=== PATIENT | female | born 2000 | race Caucasian/White ===

== ENCOUNTER 2023-09-08 18:06 | Emergency (ER) | payer OTHER ==
[~2023-09-08] VITALS: Ht 152.4 cm; Wt 73.9 kg
[~2023-09-08 18:06] MED LIST: PREDNISONE20 MG PO; PROVENTIL HFA6.7 GM INH
[2023-09-08 18:58] LABS: INFLUENZA B NAA NEGATIVE (NEGATIVE); RESPIRATORY SYNCYTIAL VIR NAA NEGATIVE (NEGATIVE)
[2023-09-08 19:14] LABS: BASOPHILS 0.3 % (0-2); EOSINOPHILS 0.8 % (0-6); HEMATOCRIT 38.1 % (35.0-50.0); HEMOGLOBIN 12.8 g/dL (12.0-18.0); LYMPHOCYTES 13.9 % (24-44); MCH 30.2 (27-36); MCHC 33.7 g/dl (30-36); MCV 89.7 fl (81-99); MONOCYTES 5.9 % (0-12); NEUTROPHILS 79.1 % (39-80); PLATELET COUNT 155 K/uL (140-440); RBC 4.24 M/ul (4.3-5.7); RDW 12.9 (10.5-15.0)
[2023-09-08 19:30] LABS: BILIRUBIN, URINE NEGATIVE (negative); BLOOD/HGB, URINE NEGATIVE (Negative); KETONE, URINE NEGATIVE (Negative); LEUK ESTERASE, URINE NEGATIVE (negative); NITRITE, URINE NEGATIVE (negative); PH, URINE 6.5 (5-7)
[2023-09-08 19:39] LABS: ALBUMIN 2.5 g/dL (3.4-5.0); ALBUMIN/GLOBULIN RATIO 0.66 (1.1-2.4); ANION GAP 11.7 (7-21); BILIRUBIN, TOTAL 0.3 ng/dL (0.2-1.0); BUN/CREATININE RATIO 9.8 (6.0-28.6); CREATININE, SERUM 0.51 mg/dL (0.55-1.02); POTASSIUM 3.7 mmol/L (3.5-5.1); PROTEIN, TOTAL 6.3 g/dL (6.4-8.2); TSH, 3RD GENERATION 1.896 uIU/mL (0.358-3.740)
[2023-09-08 19:39] LABS: EPITHELIAL CELLS, URINE SQUAMOUS 2+ /lpf (0-1+); RED BLOOD CELLS, URINE 0-1 /hpf (0-5); REFLEX CULTURE, URINE No (No); WHITE BLOOD CELLS, URINE 0-1 /HPF (0-5)
[2023-09-08 19:40] LABS: BACTERIA, URINE 1+ /hpf (negative)
[2023-09-08 19:47] LABS: PROTEIN, RANDOM URINE <6 mg/dL (NOT ESTABLISHED)
[2023-09-08 19:49] LABS: CREATININE, RANDOM URINE 14.71 mg/dL (NOT ESTABLISHED)
[2023-09-08 20:05] VITALS: BP 156/109
== END 2023-09-08 20:16 | disposition home or self-care (01) ==
LOC: ED 18:06
PROVIDERS: Internal Medicine
DX: O99.513 Diseases of the respiratory system complicating pregnancy, third trimester (principal); J06.9 Acute upper respiratory infection, unspecified; O99.413 Diseases of the circulatory system complicating pregnancy, third trimester; Z3A.37 37 weeks gestation of pregnancy; F17.200 Nicotine dependence, unspecified, uncomplicated; Z20.822 Contact with and (suspected) exposure to COVID-19
CPT/HCPCS: 36415; 80053; 81001; 82570; 84156; 84443; 85025; 87502; C9803; U0002

== ENCOUNTER 2023-09-10 11:28 | Emergency (ER) | payer OTHER ==
[~2023-09-10] VITALS: Ht 152.4 cm; Wt 92.7 kg
--- OUTSIDE RECORDS SUMMARY | 2023-09-10 11:36 | XMS ---
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 PHONE: [phone] Natasha has no Care Guidelines for this patient. [place] VISIT COUNT (12 MO.) 3 [facility] TOTAL 3 NOTE: Visits indicate total known visits. ED/UCC VISIT TRACKING (12 MO.) 09/10/2023 11:29 [facility] TYPE: Emergency COMPLAINT: - R EAR PLUGGED, THROBING PAIN 09/08/2023 18:07 [facility] TYPE: Emergency COMPLAINT: - COLD SYMPTOMS DIAGNOSES: - 37 weeks gestation of - Acute upper respiratory infection, unspecified - Contact with and (suspected) exposure to COVID-19 - Diseases of the circulatory system complicating , third trimester - Diseases of the respiratory system complicating , third trimester - Headache, unspecified - Nicotine dependence, unspecified, uncomplicated 03/30/2023 00:28 [facility] TYPE: Emergency COMPLAINT: - FAINTED 3MO PREG DIAGNOSES: - 10 weeks gestation of - 13 weeks gestation of - Other specified diseases and conditions complicating - Smoking (tobacco) complicating , first trimester - Syncope and collapse INPATIENT VISIT TRACKING (12 MO.) No inpatient visits to display in this time frame [email or web address]
[2023-09-10 12:23] VITALS: BP 161/114
[2023-09-10 12:44] LABS: HEMATOCRIT 39.3 % (35.0-50.0); HEMOGLOBIN 13.6 g/dL (12.0-18.0); MCH 30.6 (27-36); MCHC 34.6 g/dl (30-36); MCV 88.5 fl (81-99); RBC 4.44 M/ul (4.3-5.7); RDW 13.1 (10.5-15.0)
[2023-09-10 12:54] LABS: ALBUMIN 2.6 g/dL (3.4-5.0); ALBUMIN/GLOBULIN RATIO 0.63 (1.1-2.4); BILIRUBIN, TOTAL 0.6 ng/dL (0.2-1.0); BUN/CREATININE RATIO 8.92 (6.0-28.6); CREATININE, SERUM 0.56 mg/dL (0.55-1.02); PROTEIN, TOTAL 6.7 g/dL (6.4-8.2)
[2023-09-10 13:20] LABS: CREATININE, RANDOM URINE 37.56 mg/dL (NOT ESTABLISHED); PROTEIN/CREATININE RATIO 0.61 mg/mg (0.010-0.107)
== END 2023-09-10 12:23 | disposition home or self-care (01) ==
LOC: ED 11:28
PROVIDERS: Obstetrics & Gynecology
DX: O16.3 Unspecified maternal hypertension, third trimester (principal); O99.891 Other specified diseases and conditions complicating pregnancy; O99.333 Smoking (tobacco) complicating pregnancy, third trimester; H73.011 Bullous myringitis, right ear; F17.200 Nicotine dependence, unspecified, uncomplicated; Z3A.37 37 weeks gestation of pregnancy
CPT/HCPCS: 36415; 80053; 82565; 82570; 83615; 84156; 84550; 85027; 85060; 99283

== ENCOUNTER 2023-09-10 12:50 | Inpatient (IN) | payer OTHER ==
[~2023-09-10] VITALS: Ht 152.4 cm; Wt 94.3 kg
[2023-09-10 13:05] VITALS: BP 145/102
[2023-09-10 14:08] LABS: AMPHETAMINES, URINE NEGATIVE (NEGATIVE); BARBITURATES, URINE NEGATIVE (NEGATIVE); BENZODIAZEPINE, URINE NEGATIVE (NEGATIVE); BUPRENORPHINE, URINE NEGATIVE (NEGATIVE); CANNABINOID, URINE NEGATIVE (NEGATIVE); COCAINE, URINE NEGATIVE (NEGATIVE); ECSTASY, URINE NEGATIVE (NEGATIVE); FENTANYL, URINE NEGATIVE (NEGATIVE); METHADONE, URINE NEGATIVE (NEGATIVE); OPIATES, URINE NEGATIVE (NEGATIVE); OXYCODONE, URINE NEGATIVE (NEGATIVE); PHENCYCLIDINE, URINE NEGATIVE (NEGATIVE)
[2023-09-10 18:02] LABS: ABO A; ANTIBODY SCREEN NEGATIVE; RH POSITIVE
--- NOTE | 2023-09-10 20:32 | PR ---
[facility] [address] [facility] [place], [place] [address] Signed Progress Notes IP Datetime Report Generated by CPN: 09/10/2023 20:32 PROGRESS NOTES: [id number] Impression: Reassuring Heart Rate Plan: Continue Present Management Other Informed Consents: Reviewed Mag / HTN management if indicated VITAL SIGNS: [id number] Vital Signs: Reviewed VS Notable Details: No severe range EXAM: [id number] Effacement: 50 Station: -3 MEMBRANES: [id number] Comments: Pt seen and evaluated. One severe elevated BP, not sustained. No UP, RUQ pain, or visual changes. Reviewed FHT, BPs, and indications for Mag / HTN intervention as needed. All questions answered. Will continue to monitor. FETUS A: [id number] FHR Baseline: 140 Variability: Minimal - >Undetectable to <=5bpm Decelerations: None FHR Category: Category II Presentation: Vertex Comments on Fetus A: Reassuring FHT FETUS B: [id number] Signing Physician: Mehreen Anand DO Copies: ~ *Electronically Signed* 09/10/232031 MEHREEN ANAND (ZAIRE) DO PATIENT NAME: MARI HOLLOWAY PROGRESS NOTE DATE OF : 01 PHYSICIAN: MEHREEN ANAND (ZAIRE) DO RPT #: [id number] REPORT IS CONFIDENTIAL AND NOT TO BE RELEASED WITHOUT AUTHORIZATION
[2023-09-11 09:03] LABS: HEMATOCRIT 38.8 % (35.0-50.0); HEMOGLOBIN 12.9 g/dL (12.0-18.0); MCH 29.7 (27-36); MCHC 33.3 g/dl (30-36); MCV 89.1 fl (81-99); RBC 4.35 M/ul (4.3-5.7); RDW 12.8 (10.5-15.0)
--- NOTE | 2023-09-11 09:10 | PR ---
[facility] [address] [facility] [place], [place] [address] Signed Progress Notes IP Datetime Report Generated by CPN: 09/11/2023 09:10 PROGRESS NOTES: [id number] Impression: Reassuring Heart Rate Other Procedures: Mag Sulfate / Labetalol Plan: Continue Present Management Other Informed Consents: Reviewed Mag / HTN management if indicated VITAL SIGNS: [id number] Vital Signs: Reviewed VS Notable Details: No severe range EXAM: [id number] Effacement: 40 Station: -1 MEMBRANES: [id number] Comments: Pt seen and examined. Pt w/ sustained elevated BPs. No UP, RUQ pain, or visual changes. Start Mag 6g bolus 2g/hr maint. Labetalol protocol initiated and pt received one dose of labetalol 20mg IV and BPs normal. Will monitor per protocol. Reviewed anticipated course of labor and close monitoring of FHT. Discussed indication for C/S if needed. Pt understands and agrees with plan of care. FETUS A: [id number] FHR Baseline: 140 Variability: Minimal - >Undetectable to <=5bpm Decelerations: Late FHR Category: Category II Presentation: Vertex Comments on Fetus A: Reassuring FHT FETUS B: [id number] Signing Physician: Mehreen Anand DO Copies: ~ *Electronically Signed* 09/11/23 0910 MEHREEN ANAND (ZAIRE) DO PATIENT NAME: MARI HOLLOWAY PROGRESS NOTE DATE OF : 01 PHYSICIAN: MEHREEN ANAND (JD) DO RPT #: [id number] REPORT IS CONFIDENTIAL AND NOT TO BE RELEASED WITHOUT AUTHORIZATION
[2023-09-11 09:20] LABS: ALBUMIN 2.3 g/dL (3.4-5.0); ALBUMIN/GLOBULIN RATIO 0.56 (1.1-2.4); ANION GAP 15.9 (7-21); BILIRUBIN, TOTAL 0.6 ng/dL (0.2-1.0); BUN/CREATININE RATIO 11.32 (6.0-28.6); CALCIUM 8.8 mg/dL (8.5-10.1); CREATININE, SERUM 0.53 mg/dL (0.55-1.02); POTASSIUM 3.9 mmol/L (3.5-5.1); PROTEIN, TOTAL 6.4 g/dL (6.4-8.2)
--- NOTE | 2023-09-11 12:36 | PR ---
[facility] [address] [place], [place] [address] Signed Progress Notes IP Datetime Report Generated by CPN: 09/11/2023 12:36 PROGRESS NOTES: [id number] Impression: Reassuring Heart Rate; Gest. HTN/PreEclampsia/Eclampsia Procedures: Sterile Vag Exam Other Procedures: Mag Sulfate / Labetalol Plan: Cervical Ripening Other Informed Consents: Reviewed Mag / HTN management if indicated VITAL SIGNS: [id number] Vital Signs: Reviewed VS Notable Details: No severe range EXAM: [id number] Dilatation: 0.0 Effacement: 40 Station: -1 Contractions: Rare MEMBRANES: [id number] Comments: Pt seen and examined. Doing well. Frustrated w/ lack of progress. Declines nicotine patch. Tolerating magsulfate well. No severe range BPs. No concerns. Discussed cx exam and recommended cytotec which was placed w/out difficulty. Continue induction of labor. FETUS A: [id number] FHR Baseline: 140 Variability: Minimal - >Undetectable to <=5bpm Decelerations: None FHR Category: Category II Presentation: Vertex Comments on Fetus A: Reassuring FHT FETUS B: [id number] Signing Physician: Mehreen Anand DO Copies: ~ *Electronically Signed* 09/11/23 1236 MEHREEN ANAND (ZAIRE) DO PATIENT NAME: MARI HOLLOWAY PROGRESS NOTE DATE OF : 01 PHYSICIAN: MEHREEN ANAND (JD) DO RPT #: [id number] REPORT IS CONFIDENTIAL AND NOT TO BE RELEASED WITHOUT AUTHORIZATION
[2023-09-11 15:02] LABS: HEMATOCRIT 39.9 % (35.0-50.0); HEMOGLOBIN 13.6 g/dL (12.0-18.0); MCH 30.2 (27-36); MCHC 34.1 g/dl (30-36); MCV 88.7 fl (81-99); RBC 4.5 M/ul (4.3-5.7); RDW 12.9 (10.5-15.0)
[2023-09-11 15:17] LABS: ALBUMIN 2.6 g/dL (3.4-5.0); ALBUMIN/GLOBULIN RATIO 0.62 (1.1-2.4); BILIRUBIN, TOTAL 0.5 ng/dL (0.2-1.0); BUN/CREATININE RATIO 8.06 (6.0-28.6); CREATININE, SERUM 0.62 mg/dL (0.55-1.02); PROTEIN, TOTAL 6.8 g/dL (6.4-8.2)
[2023-09-11 21:21] LABS: HEMATOCRIT 39.7 % (35.0-50.0); HEMOGLOBIN 13.5 g/dL (12.0-18.0); MCH 30.3 (27-36); MCHC 34.1 g/dl (30-36); MCV 88.8 fl (81-99); RBC 4.47 M/ul (4.3-5.7); RDW 12.8 (10.5-15.0)
[2023-09-11 21:27] LABS: ALBUMIN 2.2 g/dL (3.4-5.0); ALBUMIN/GLOBULIN RATIO 0.52 (1.1-2.4); ANION GAP 11.1 (7-21); BILIRUBIN, TOTAL 0.5 ng/dL (0.2-1.0); BUN/CREATININE RATIO 7.4 (6.0-28.6); CALCIUM 7.4 mg/dL (8.5-10.1); CREATININE, SERUM 0.54 mg/dL (0.55-1.02); POTASSIUM 4.1 mmol/L (3.5-5.1); PROTEIN, TOTAL 6.4 g/dL (6.4-8.2)
--- NOTE | 2023-09-11 23:25 | PR ---
[facility] [address] [place], [place] [address] Signed Progress Notes IP Datetime Report Generated by CPN: 09/11/2023 23:25 PROGRESS NOTES: [id number] Impression: Reassuring Heart Rate Procedures: Sterile Vag Exam Other Procedures: Mag Sulfate / Labetalol Plan: Cervical Ripening Other Plans: Pt asking about primary C/S Informed Consent Obtain: Vaginal Delivery; Section Delivery; Induction of Labor Other Informed Consents: Reviewed Mag / HTN management if indicated VITAL SIGNS: [id number] Vital Signs: Reviewed VS Notable Details: No severe range EXAM: [id number] Dilatation: 0.0 Effacement: 0 Station: -3 Contractions: Rare MEMBRANES: [id number] Comments: Pt seen and evaluated. Feeling frustrated w/ lack of progress but otherwise doing well and in good spirits. No UP, RUQ pain or visual changes. Reviewed PreE labs at 21:00 normal. Reviewed slow progress of induction and pt inquiring about primary C/S. After discussion of risks/benefits, pt would like to continue attempting induction of labor but is strongly considering C/S. All questions answered. FETUS A: [id number] FHR Baseline: 140 Variability: Moderate 6-25bpm Decelerations: None FHR Category: Category I Presentation: Vertex Comments on Fetus A: Reassuring FHT FETUS B: [id number] Signing Physician: Mehreen Anand DO Copies: ~ *Electronically Signed* 09/11/23 5041 MEHREEN ANAND (ZAIRE) DO PATIENT NAME: MARI HOLLOWAY PROGRESS NOTE DATE OF : 01 PHYSICIAN: MEHREEN ANAND (JD) DO RPT #: [id number] REPORT IS CONFIDENTIAL AND NOT TO BE RELEASED WITHOUT AUTHORIZATION
[2023-09-12 03:11] LABS: HEMOGLOBIN 13.2 g/dL (12.0-18.0); MCH 30.1 (27-36); MCHC 33.7 g/dl (30-36); MCV 89.3 fl (81-99); RBC 4.37 M/ul (4.3-5.7); RDW 12.6 (10.5-15.0)
[2023-09-12 03:24] LABS: ALBUMIN 2.2 g/dL (3.4-5.0); ALBUMIN/GLOBULIN RATIO 0.56 (1.1-2.4); ANION GAP 12.9 (7-21); BILIRUBIN, TOTAL 0.5 ng/dL (0.2-1.0); BUN/CREATININE RATIO 7.84 (6.0-28.6); CALCIUM 7.3 mg/dL (8.5-10.1); CREATININE, SERUM 0.51 mg/dL (0.55-1.02); POTASSIUM 3.9 mmol/L (3.5-5.1); PROTEIN, TOTAL 6.1 g/dL (6.4-8.2)
--- NOTE | 2023-09-12 04:40 | PR ---
[facility] [address] [place], [place] [address] Signed Progress Notes IP Datetime Report Generated by CPN: 09/12/2023 04:40 PROGRESS NOTES: [id number] Impression: Non-reassuring Heart Rate Procedures: Sterile Vag Exam Other Procedures: Mag Sulfate / Labetalol Plan: Deliver- Section Other Plans: Pt asking about primary C/S Informed Consent Obtain: Section Delivery; Risks, Benefits and Alternatives Discussed Other Informed Consents: Reviewed Mag / HTN management if indicated VITAL SIGNS: [id number] Vital Signs: Reviewed VS Notable Details: No severe range EXAM: [id number] Dilatation: 0.0 Effacement: 50 Station: -3 Contractions: Irregular MEMBRANES: [id number] Comments: Called by RN for recurrent late decelertions. Presented to pt's bedside and reviewed strip. Minimal variability with recurrent late decelerations. Remote from delivery. Recommended primary LTCS as previously discussed. Risks, benefits, and alternatives discussed. Pt understands agrees. Consents signed and OR crew called. Will continue intrauterine rescussitation. RT and Peds en route. FETUS A: [id number] FHR Baseline: 140 Variability: Minimal - >Undetectable to <=5bpm Decelerations: Late FHR Category: Category II Presentation: Vertex Comments on Fetus A: Reassuring FHT FETUS B: [id number] Signing Physician: Mehreen Anand DO *Electronically Signed* 09/12/23 9100 MEHREEN ANAND (ZAIRE) DO PATIENT NAME: MARI HOLLOWAY PROGRESS NOTE DATE OF : 01 PHYSICIAN: MEHREEN ANAND (JD) DO RPT #: [id number] REPORT IS CONFIDENTIAL AND NOT TO BE RELEASED WITHOUT AUTHORIZATION
[2023-09-12 06:53] VITALS: BP 132/97
--- NOTE | 2023-09-12 07:22 | NUR ---
09/12/23 0722 Cornish[place]uz 0611- PT TO ROOM 106 IN [facility], AWAKE BUT DROWSY. DENIES PAIN OR NAUSEA. ALL MONITORS IN PLACE, NSR ON MONITOR. LR WITH 30 UNITS OF PITOCIN AND MAGNESIUM INFUSING TO 18 G LAC IV. PT HAS 20 IV TO RH SALINE LOCKED. FUNDUS FIRM AT UMBILICUS, NO BLEEDING AT THIS TIME. DRESSING IN PLACE, CDI. MARTIN [facility] RN AT BEDSIDE, ASSESSING PT AND FUNDUS. BABY TO BREAST. 06- MARTIN RN CONTINUES TO ASSIST PT WITH BREAST FEEDING. HEAD OF BED ELEVATED, PT TOLERATING WELL. PT REMAINS AWAKE BUT DROWSY. SPINAL LEVEL T-3. LR AND MAG CONTINUE TO INFUSE. REPORT AT BEDSIDE TO MARTIN RN. BED PLUGGED IN. NO SIGNS OF DISTRESS. CARE OF PT TURNED OVER AT THIS TIME.
[2023-09-12 08:20] LABS: HEMATOCRIT 35.5 % (35.0-50.0); HEMOGLOBIN 12.2 g/dL (12.0-18.0); MCH 30.3 (27-36); MCHC 34.4 g/dl (30-36); MCV 88.1 fl (81-99); RBC 4.02 M/ul (4.3-5.7); RDW 12.8 (10.5-15.0)
[2023-09-12 08:34] LABS: ALBUMIN/GLOBULIN RATIO 0.54 (1.1-2.4); ANION GAP 10.3 (7-21); BILIRUBIN, TOTAL 0.5 ng/dL (0.2-1.0); BUN/CREATININE RATIO 9.09 (6.0-28.6); CALCIUM 7.1 mg/dL (8.5-10.1); CREATININE, SERUM 0.55 mg/dL (0.55-1.02); POTASSIUM 4.3 mmol/L (3.5-5.1); PROTEIN, TOTAL 5.7 g/dL (6.4-8.2)
[2023-09-12 14:02] LABS: HEMATOCRIT 37.9 % (35.0-50.0); HEMOGLOBIN 12.7 g/dL (12.0-18.0); MCHC 33.4 g/dl (30-36); MCV 89.8 fl (81-99); RBC 4.22 M/ul (4.3-5.7); RDW 12.9 (10.5-15.0)
[2023-09-12 14:22] LABS: ALBUMIN 2.2 g/dL (3.4-5.0); ALBUMIN/GLOBULIN RATIO 0.54 (1.1-2.4); ANION GAP 14.1 (7-21); BILIRUBIN, TOTAL 0.4 ng/dL (0.2-1.0); BUN/CREATININE RATIO 9.09 (6.0-28.6); CALCIUM 7.5 mg/dL (8.5-10.1); CREATININE, SERUM 0.77 mg/dL (0.55-1.02); POTASSIUM 5.1 mmol/L (3.5-5.1); PROTEIN, TOTAL 6.3 g/dL (6.4-8.2)
[2023-09-12 20:19] LABS: HEMATOCRIT 35.2 % (35.0-50.0); HEMOGLOBIN 11.7 g/dL (12.0-18.0); MCH 29.8 (27-36); MCHC 33.3 g/dl (30-36); MCV 89.4 fl (81-99); RBC 3.93 M/ul (4.3-5.7); RDW 12.9 (10.5-15.0)
[2023-09-12 21:19] LABS: ALBUMIN 2.1 g/dL (3.4-5.0); ALBUMIN/GLOBULIN RATIO 0.55 (1.1-2.4); ANION GAP 12.8 (7-21); BILIRUBIN, TOTAL 0.3 ng/dL (0.2-1.0); BUN/CREATININE RATIO 11.94 (6.0-28.6); CALCIUM 7.2 mg/dL (8.5-10.1); CREATININE, SERUM 0.67 mg/dL (0.55-1.02); POTASSIUM 4.8 mmol/L (3.5-5.1); PROTEIN, TOTAL 5.9 g/dL (6.4-8.2)
--- NOTE | 2023-09-13 09:48 | PR ---
[facility] [address] [place], [place] [address] Signed PP Progress Notes Datetime Report Generated by CPN: 09/13/2023 09:48 SUBJECTIVE: [id number] Pain: Within Normal Limits Nausea/Vomiting: Denies Flatus: Yes Bowel Movement: No Vital Signs: [id number] Vital Signs: Reviewed; Within Normal Limits Cardiovascular: Not Done Respiratory: Not Done Abdomen/Uterus: Normal Lochia: Normal Vulva/Perineum: Not Done Breasts: Not Done CVA Tenderness: Not Done Extremities: Normal Incision: Normal Progress: Normal IMPRESSION/PLAN/PROCEDURES: [id number] Impression: Normal Progression; Induced Hypertension Plan: Continue Present Management Procedures: None Progress Notes: S: 23 yo s/p primary section. Very emotional this morning following delivery events, being confined to bed, very little sleep. Denies UP, CP, SOB, F/C, N/V, RUQ pain, changes in vision, vaginal discharge. Tolerating regular diet, ambulating, voiding on own, pain controlled. O: AFVSS Abd: Soft. Appropriately tender to palpation, fundus firm and below umbilicus. Incision C/D/I. No erythema or drainage. Signing Physician: Nani Eric MD Copies: ~ *Electronically Signed* 09/13/23 0948 NANI ERIC MD PATIENT NAME: MARI HOLLOWAY PROGRESS NOTE DATE OF : 01 PHYSICIAN: NANI ERIC MD RPT #: [id number] REPORT IS CONFIDENTIAL AND NOT TO BE RELEASED WITHOUT AUTHORIZATION
--- NOTE | 2023-09-13 10:45 | NUR ---
MOTHER SLEEPING. ASKED NOT TO BE DISTURBED. DID NOT ENTER ROOM. PRAYED SILENTLY FOR GOOD BEGINNINGS AND ONGOING BLESSING.
[2023-09-14 05:37] LABS: HEMATOCRIT 31.7 % (35.0-50.0); HEMOGLOBIN 10.7 g/dL (12.0-18.0); MCH 30.4 (27-36); MCHC 33.6 g/dl (30-36); MCV 90.4 fl (81-99); RBC 3.51 M/ul (4.3-5.7); RDW 13.2 (10.5-15.0)
[2023-09-14 05:56] LABS: ALBUMIN 2.2 g/dL (3.4-5.0); ALBUMIN/GLOBULIN RATIO 0.65 (1.1-2.4); ANION GAP 11.2 (7-21); BILIRUBIN, TOTAL 0.2 ng/dL (0.2-1.0); BUN/CREATININE RATIO 13.43 (6.0-28.6); CALCIUM 8.4 mg/dL (8.5-10.1); CREATININE, SERUM 0.67 mg/dL (0.55-1.02); POTASSIUM 4.2 mmol/L (3.5-5.1); PROTEIN, TOTAL 5.6 g/dL (6.4-8.2)
--- NOTE | 2023-09-14 09:10 | PR ---
[facility] [address] [facility] [place], [place] [address] Signed PP Progress Notes Datetime Report Generated by CPN: 09/14/2023 09:10 SUBJECTIVE: [id number] Pain: Within Normal Limits Nausea/Vomiting: Denies Flatus: Yes Bowel Movement: No Vital Signs: [id number] Vital Signs: Reviewed; Within Normal Limits Cardiovascular: Not Done Respiratory: Not Done Abdomen/Uterus: Normal Lochia: Normal Vulva/Perineum: Not Done Breasts: Not Done CVA Tenderness: Not Done Extremities: Normal Incision: Normal Progress: Normal IMPRESSION/PLAN/PROCEDURES: [id number] Impression: Normal Progression; Induced Hypertension Plan: Continue Present Management Procedures: None Progress Notes: S: 23 yo s/p primary LTCS. POD #2. Doing well. Denies UP, CP, SOB, F/C, N/V, RUQ pain, changes in vision, vaginal discharge. Tolerating regular diet, ambulating, voiding on own, pain controlled. Mood greatly improved since yesterday morning. O: AFVSS Abd: Soft. Non-tender. Fundus firm, below umbilicus. Incision C/D/I. No erythema or drainage. Musc: TERRY. A/P: Patient well. Meeting all hospital milestones. Will discharge home today. Signing Physician: Nani Rizo MD *Electronically Signed* 09/14/23 0910 NANI RIZO MD PATIENT NAME: MARI HOLLOWAY PROGRESS NOTE DATE OF : 01 PHYSICIAN: NANI RIZO MD RPT #: [id number] REPORT IS CONFIDENTIAL AND NOT TO BE RELEASED WITHOUT AUTHORIZATION
== END 2023-09-14 12:45 | disposition home or self-care (01) | DRG 788 ==
LOC: FBC 12:50
PROVIDERS: ADMIT Obstetrics & Gynecology; ATTEND Obstetrics & Gynecology
PROC: 4A033R1 Measurement of Arterial Saturation, Peripheral, Percutaneous Approach (ICD-10-PCS; 2023-09-12)
PROC: 10D00Z1 Extraction of Products of Conception, Low, Open Approach (ICD-10-PCS; principal; 2023-09-12 05:00)
DX: O14.14 Severe pre-eclampsia complicating childbirth (principal); O76 Abnormality in fetal heart rate and rhythm complicating labor and delivery; O99.324 Drug use complicating childbirth; Z3A.37 37 weeks gestation of pregnancy; Z37.0 Single live birth; O69.81X0 Labor and delivery complicated by cord around neck, without compression, not applicable or unspecified; O13.4 Gestational [pregnancy-induced] hypertension without significant proteinuria, complicating childbirth; O99.334 Smoking (tobacco) complicating childbirth; F12.90 Cannabis use, unspecified, uncomplicated; F17.210 Nicotine dependence, cigarettes, uncomplicated
CPT/HCPCS: 01961; 36415; 80053; 80307; 82565; 82803; 83615; 83735; 84550; 85027; 85060; 86850; 86900; 86901; 87502; A9270; J0690; J1100; J1885; J2001; J2270; J2274; J2371; J2405; J2590; J2795; J3475; J7121; Q0177; U0002

== ENCOUNTER 2025-01-10 16:33 | Emergency (ER) | payer OTHER ==
[~2025-01-10] VITALS: Ht 152.4 cm; Wt 98.1 kg
[2025-01-10] MEDS ORDERED: DROSPIRENONE-E1 EACH (18:37)
[2025-01-10] MEDS ORDERED: [UNRECOGNIZED DRUG - OTHER] (18:37)
[2025-01-10] MEDS ORDERED: TRAMADOL HCL50 MG PO (19:43)
[2025-01-10] MEDS ORDERED: AMOX TR-K CLV1 EAC1 PO (19:43)
[2025-01-10] MEDS ORDERED: TRAMADOL HCL 50 MG HOME.PACK PO ONE (19:45)
[2025-01-10] MEDS ORDERED: AMOXICILLIN/CLAVULANATE K 875 MG HOME.PACK PO ONE (19:45)
[2025-01-10 20:00] VITALS: BP 125/68
== END 2025-01-10 20:00 | disposition home or self-care (01) ==
LOC: ED 16:33
DX: L60.0 Ingrowing nail (principal); F17.200 Nicotine dependence, unspecified, uncomplicated; Z79.899 Other long term (current) drug therapy
CPT/HCPCS: 99283; A9270